=== PATIENT | male | born 1975 | race African-American/Black ===

== ENCOUNTER 2017-06-02 08:41 | Emergency (ER) | payer MEDICARE, MEDICAID | END 2017-06-02 10:06 | disposition home or self-care (01) | LOC: D.ER 08:41 | DX: J45.901 Unspecified asthma with (acute) exacerbation (principal); B20 Human immunodeficiency virus [HIV] disease; F17.200 Nicotine dependence, unspecified, uncomplicated ==

== ENCOUNTER 2017-08-18 20:09 | Emergency (ER) | payer MEDICARE, MEDICAID | END 2017-08-19 02:15 | disposition home or self-care (01) | LOC: D.ER 20:09 | DX: S61.412A Laceration without foreign body of left hand, initial encounter (principal); W26.0XXA Contact with knife, initial encounter; Y93.89 Activity, other specified; Y92.019 Unspecified place in single-family (private) house as the place of occurrence of the external cause; B20 Human immunodeficiency virus [HIV] disease ==

== ENCOUNTER 2017-08-19 09:21 | Emergency (ER) | payer MEDICARE, MEDICAID | END 2017-08-19 10:47 | disposition home or self-care (01) | LOC: D.ER 09:21 | DX: S61.211A Laceration without foreign body of left index finger without damage to nail, initial encounter (principal); S61.213A Laceration without foreign body of left middle finger without damage to nail, initial encounter; S61.215A Laceration without foreign body of left ring finger without damage to nail, initial encounter; S61.217A Laceration without foreign body of left little finger without damage to nail, initial encounter; W26.0XXA Contact with knife, initial encounter; Y93.89 Activity, other specified; Y92.019 Unspecified place in single-family (private) house as the place of occurrence of the external cause; B20 Human immunodeficiency virus [HIV] disease ==

== ENCOUNTER 2017-08-24 09:46 | Emergency (ER) | payer MEDICARE, MEDICAID | END 2017-08-24 10:38 | disposition home or self-care (01) | LOC: D.ER 09:46 | DX: S61.213A Laceration without foreign body of left middle finger without damage to nail, initial encounter (principal); S61.215A Laceration without foreign body of left ring finger without damage to nail, initial encounter; X58.XXXA Exposure to other specified factors, initial encounter; Y93.89 Activity, other specified; Y92.410 Unspecified street and highway as the place of occurrence of the external cause; B20 Human immunodeficiency virus [HIV] disease ==

== ENCOUNTER 2017-09-02 10:49 | Emergency (ER) | payer MEDICARE, MEDICAID | END 2017-09-02 12:26 | disposition home or self-care (01) | LOC: D.ER 10:49 | DX: S66.922A Laceration of unspecified muscle, fascia and tendon at wrist and hand level, left hand, initial encounter (principal); W26.0XXA Contact with knife, initial encounter; Y93.89 Activity, other specified; Y92.019 Unspecified place in single-family (private) house as the place of occurrence of the external cause ==